=== PATIENT | female | born 1930 | race Two or more races ===

== ENCOUNTER → 2017-10-02 | Emergency (ER) | payer OTHER ==
[~2017-10-02] VITALS: Ht 157.5 cm; Wt 59.0 kg
[~2017-10-02] MED LIST: ALTACE10 MG; NORVASC5 MG
== END | disposition home or self-care (01) ==
LOC: ER 10:55
DX: L29.8 Other pruritus (principal)

== ENCOUNTER 2019-05-13 11:47 | Emergency (ER) | payer OTHER ==
[~2019-05-13] VITALS: Ht 154.9 cm; Wt 54.4 kg
[2019-05-13] MEDS ORDERED: HYDROCHLOROTH12.5 M1 PO (12:14)
[2019-05-13] MEDS ORDERED: COZAAR25 MG PO (12:14)
[2019-05-13] MEDS ORDERED: CLONIDINE HCL0.2 MG PO (12:14)
== END 2019-05-13 18:27 | disposition home or self-care (01) ==
LOC: ER 11:47
DX: S30.0XXA Contusion of lower back and pelvis, initial encounter (principal); D64.89 Other specified anemias; D69.49 Other primary thrombocytopenia; R06.02 Shortness of breath; E86.0 Dehydration; W18.09XA Striking against other object with subsequent fall, initial encounter; Y93.89 Activity, other specified; Y92.89 Other specified places as the place of occurrence of the external cause; Y99.8 Other external cause status